=== PATIENT | female | born 1980 ===

== ENCOUNTER 2022-02-18 11:08 | Outpatient (CLI) | payer OTHER | END 2022-02-18 11:09 | disposition home or self-care (01) | LOC: BICCT 11:08 | DX: R07.89 Other chest pain (principal); R94.31 Abnormal electrocardiogram [ECG] [EKG]; R06.00 Dyspnea, unspecified; R00.2 Palpitations; R53.82 Chronic fatigue, unspecified; Z86.16 Personal history of COVID-19 | CPT/HCPCS: 71275 ==